=== PATIENT | female | born 1950 | race Caucasian/White ===

== ENCOUNTER → 2017-11-16 | Outpatient (CLI) | payer MEDICARE, OTHER | END | disposition home or self-care (01) | LOC: CFH 09:48 | PROVIDERS: ATTEND Nurse Practitioner | DX: E05.90 Thyrotoxicosis, unspecified without thyrotoxic crisis or storm (principal) | CPT/HCPCS: 76536 ==

== ENCOUNTER 2018-04-17 16:23 | Observation (INO) | payer MEDICARE, OTHER ==
[~2018-04-17] VITALS: Ht 154.9 cm; Wt 85.4 kg
[2018-04-17] MEDS ORDERED: HYDROcodone/APAP 5/325 TABLET ONE (17:19)
[2018-04-17] MEDS ORDERED: HYDROcodone/APAP 5/325 TABLET PO ONE (17:30)
[2018-04-17] MEDS ORDERED: SODIUM CHLORIDE FLUSH 10ML SYR IVF ONE (18:30)
[2018-04-17] MEDS ORDERED: PROPOFOL 10 MG/ML, 20ML IVPush ONE ×2 (18:30→22:00)
[2018-04-17] MEDS ORDERED: SODIUM CHLORIDE 0.9% 1,000ML IVBOLUS ONE (18:30)
[2018-04-17] MEDS ORDERED: PROPOFOL 10 MG/ML, 20ML ONE ×2 (18:44→21:03)
[2018-04-17] MEDS ORDERED: MORPHINE SULFATE 4 MG/ML, 1ML ONE ×2 (19:05→20:31)
[2018-04-17] MEDS ORDERED: MORPHINE SULFATE 4 MG/ML, 1ML IVPush ONE (19:30)
[2018-04-17] MEDS ORDERED: morphine SULFATE 10 MG/ML, 1ML IVPush ONE (20:30)
[2018-04-17] MEDS ORDERED: CALC-112 PO (21:57)
[2018-04-17] MEDS ORDERED: METH10TA6 PO (21:57)
[2018-04-17] MEDS ORDERED: ONDANSETRON 2MG/ML, 2ML IV PRN (22:00)
[2018-04-17] MEDS ORDERED: morphine SULFATE 10 MG/ML, 1ML IV PRN (22:00)
[2018-04-17 22:52] LABS: BASOPHILS # (AUTO) 0.03 x10^3/uL (0-0.1); BASOPHILS % (AUTO) 0 % (0-1); EOSINOPHILS # (AUTO) 0.12 x10^3/uL (0-0.4); EOSINOPHILS % (AUTO) 1 % (1-7); LYMPHOCYTES # (AUTO) 2.37 x10^3/uL (1-3.4); LYMPHOCYTES % (AUTO) 18 % (22-44); MD NO; MEAN CORPUSCULAR HEMOGLOBIN 31.1 pg (27.0-34.8); MEAN CORPUSCULAR HGB CONC 33.3 g/dL (32.4-35.8); MEAN CORPUSCULAR VOLUME 93.4 fL (80-100); MEAN PLATELET VOLUME 9.2 fL (7.4-10.4); MONOCYTES # (AUTO) 0.88 x10^3/uL (0.2-0.8); MONOCYTES % (AUTO) 7 % (2-9); NEUTROPHILS # (AUTO) 9.68 x10^3/uL (1.8-6.8); NEUTROPHILS % (AUTO) 74 % (42-75); PLATELET COUNT 274 x10^3/uL (130-400); RED BLOOD COUNT 4.71 x10^6/uL (3.82-5.3); RED CELL DISTRIBUTION WIDTH 14.7 % (9.6-15.2)
[2018-04-17 22:54] VITALS: BP 141/93
[2018-04-17] MEDS ORDERED: D5%-0.45NACL+KCL 20MEQ 1,000 ML IV SCH (23:00)
[2018-04-17 23:07] LABS: INTERNATIONAL NORMALIZED RATIO 1.02 (0.93-1.1); PROTHROMBIN TIME 10.5 Seconds (9.6-11.5)
[2018-04-17 23:28] LABS: ANION GAP 10 mmol/L (5-15); CALCIUM 8.7 mg/dL (8.5-10.1); CHLORIDE 111 mmol/L (98-107); CREATININE 0.74 mg/dL (0.55-1.02)
[2018-04-17] MEDS: OXYcodone/APAP 5/325MG TABLET PO PRN (23:47)
[2018-04-18] MEDS: OXYcodone/APAP 5/325MG TABLET PO PRN (00:29)
[2018-04-18 01:07] VITALS: BP 132/84
[2018-04-18] MEDS ORDERED: FENTANYL PF 250 MCG/5ML ONE (06:40)
[2018-04-18] MEDS ORDERED: MIDAZOLAM 1 MG/ML, 2ML ONE (06:40)
[2018-04-18] MEDS ORDERED: GABAPENTIN 300 MG CAPSULE PO ONE (07:00)
[2018-04-18] MEDS ORDERED: ACETAMINOPHEN 500 MG TABLET PO ONE (07:00)
[2018-04-18] MEDS ORDERED: FAMOTIDINE 20 MG TABLET PO ONE (07:00)
[2018-04-18] MEDS ORDERED: METOCLOPRAMIDE 10MG TABLET PO ONE (07:00)
[2018-04-18] MEDS ORDERED: PROPOFOL 10 MG/ML, 20ML ONE (07:05)
[2018-04-18] MEDS ORDERED: SUCCINYLCHOLINE 20 MG/ML, 10ML ONE (07:05)
[2018-04-18] MEDS ORDERED: ROCURONIUM 10 MG/ML,10ML ONE (07:05)
[2018-04-18] MEDS ORDERED: DEXAMETHASONE 4 MG/ML, 1ML ONE (07:05)
[2018-04-18] MEDS ORDERED: CEFAZOLIN 1,000 MG ONE (07:05)
[2018-04-18] MEDS ORDERED: KETAMINE 10 MG/ML, 20ML ONE (07:41)
[2018-04-18] MEDS ORDERED: MEPERIDINE/PF 25MG/0.5ML IVPush PRN (09:00)
[2018-04-18] MEDS ORDERED: ALBUTEROL SULFATE 2.5 MG/3 ML NPPB PRN (09:00)
[2018-04-18] MEDS ORDERED: MORPHINE SULFATE 4 MG/ML, 1ML IVPush PRN (09:00)
[2018-04-18] MEDS ORDERED: OXYcodone 5 MG/5 ML ORAL.SOL UDC PO PRN (09:00)
[2018-04-18] MEDS ORDERED: ONDANSETRON ODT 8 MG PO PRN (09:00)
[2018-04-18] MEDS ORDERED: FENTANYL PF 100 MCG/2ML ONE (09:08)
[2018-04-18] MEDS ORDERED: OXYcodone 5 MG/5 ML ORAL.SOL UDC ONE (09:22)
[2018-04-18] MEDS: FENTANYL PF 100 MCG/2ML IV PRN ×2 (09:25→09:30)
[2018-04-18] MEDS ORDERED: OXYcodone/APAP 10/325MG TABLET PO PRN (11:00)
[2018-04-18 13:28] VITALS: BP 131/68
[2018-04-18] MEDS ORDERED: CEFAZOLIN PMX 2GM/50ML 50 ML IVPB SCH (15:00)
[2018-04-18] MEDS ORDERED: OXYC-307 PO (17:12)
[2018-04-18] MEDS ORDERED: SODIUM CHLORIDE FLUSH 10ML SYR IVF SCH (21:00)
[2018-04-19] MEDS ORDERED: CALCIUM/VITAMIN D3 250-125 TABLET PO SCH (09:00)
== END 2018-04-18 18:34 | disposition home or self-care (01) ==
LOC: ED 20:15 → INTOOBSV 21:51 → EDIP 21:51 → 4NOR 22:51
PROVIDERS: ADMIT Orthopaedic Surgery; ATTEND Orthopaedic Surgery
DX: S42.401A Unspecified fracture of lower end of right humerus, initial encounter for closed fracture (principal); S52.121A Displaced fracture of head of right radius, initial encounter for closed fracture; M19.90 Unspecified osteoarthritis, unspecified site; F17.210 Nicotine dependence, cigarettes, uncomplicated; F12.90 Cannabis use, unspecified, uncomplicated; E03.9 Hypothyroidism, unspecified; Z80.3 Family history of malignant neoplasm of breast; Z82.49 Family history of ischemic heart disease and other diseases of the circulatory system; V18.4XXA Pedal cycle driver injured in noncollision transport accident in traffic accident, initial encounter; Y93.55 Activity, bike riding; X58.XXXA Exposure to other specified factors, initial encounter; Y92.89 Other specified places as the place of occurrence of the external cause; Y99.8 Other external cause status
CPT/HCPCS: 24635; 24665; 36415; 73070; 73080; 73110; 73200; 76000; 80048; 85025; 85610; 93005; 96365; 96375; 96376; 99285; C1713; G0378; J0330; J0690; J1100; J2250; J2270; J2704; J3010; J3480; J7030; 24655

== ENCOUNTER → 2018-10-07 | Outpatient (CLI) | payer MEDICARE, OTHER ==
[~2018-10-07] MED LIST: CALC-112 PO; METH10TA6 PO; OXYC-307 PO
== END | disposition home or self-care (01) ==
LOC: CFH 14:00
PROVIDERS: ATTEND Nurse Practitioner
DX: Z12.31 Encounter for screening mammogram for malignant neoplasm of breast (principal); Z80.3 Family history of malignant neoplasm of breast
CPT/HCPCS: 77063; 77067

== ENCOUNTER → 2019-09-17 | Outpatient (CLI) | payer MEDICARE, OTHER | END | disposition home or self-care (01) | LOC: CVU 06:42 | PROVIDERS: ATTEND Nurse Practitioner | DX: M79.604 Pain in right leg (principal); M79.605 Pain in left leg; F17.200 Nicotine dependence, unspecified, uncomplicated; E05.90 Thyrotoxicosis, unspecified without thyrotoxic crisis or storm; F12.10 Cannabis abuse, uncomplicated; Z83.3 Family history of diabetes mellitus; Z82.5 Family history of asthma and other chronic lower respiratory diseases | CPT/HCPCS: 93922 ==

== ENCOUNTER → 2019-09-24 | Outpatient (CLI) | payer MEDICARE, OTHER | END | disposition home or self-care (01) | LOC: CVU 07:20 | PROVIDERS: ATTEND Nurse Practitioner | DX: I87.2 Venous insufficiency (chronic) (peripheral) (principal); M79.609 Pain in unspecified limb; F17.200 Nicotine dependence, unspecified, uncomplicated | CPT/HCPCS: 93970 ==

== ENCOUNTER → 2021-08-04 | Outpatient (CLI) | payer MEDICARE | END | disposition home or self-care (01) | LOC: CFH 13:12 | PROVIDERS: ATTEND Nurse Practitioner | DX: N63.11 Unspecified lump in the right breast, upper outer quadrant (principal); N60.81 Other benign mammary dysplasias of right breast ==